=== PATIENT | female | born 1995 | race Caucasian/White ===

== ENCOUNTER 2017-02-19 11:25 | Observation (INO) | payer MEDICAID ==
[~2017-02-19] VITALS: Ht 162.6 cm; Wt 67.1 kg
[2017-02-22] MEDS ORDERED: PRENATAL VIT1 TAB PO (20:26)
--- NOTE | 2017-02-25 08:30 | HP ---
ADMIT: 02/19/2017 RM/LOC: 201 [facility] MR#: [id number] [id number] [address] JASMIN FERNANDEZ [facility] [address] [address] History and Physical SEX: F AGE: 21 : 1995 DATE OF SERVICE: CHIEF COMPLAINT: Contractions. HISTORY OF PRESENT ILLNESS: This is a very pleasant 21-year-old, 1, para 0 with an intrauterine at 34 weeks and 2/7 days by first trimester ultrasound, came in today with complaints of contractions. After monitoring over about 4 hours, she was noted to make some cervical change and felt to be in labor. She has been admitted for further workup and management of this. Her has otherwise been uncomplicated. She has come to all of her visits. No other major events during the care. She had a normal 20-week ultrasound, female infant. Normal cervical length at that time. No rupture of membranes. She denies any fevers, chills, or other associated symptoms. has been moving about on the monitor and has been reassuring. PAST MEDICAL HISTORY: Benign. MEDICATIONS: vitamin. LABS: O positive, antibody negative, rubella immune, serology nonreactive, GC and chlamydia negative, hepatitis B surface antigen negative. ALLERGIES: NO KNOWN DRUG ALLERGIES. FAMILY HISTORY: Noncontributory. SOCIAL HISTORY: No alcohol, drug, or tobacco use. REVIEW OF SYSTEMS: A 10-point review of systems obtained, per HPI otherwise negative. PHYSICAL EXAMINATION: VITAL SIGNS: Blood pressure 115/74, pulse 110, temperature 97.0, respirations 20. GENERAL: Alert and oriented x3. Mild discomfort with contractions. Otherwise, no acute distress. HEENT: Pupils equal, round and reactive. Extraocular muscles intact. Throat clear. Trachea midline. HEART: Regular rate and rhythm. No murmurs, rubs, or gallops. LUNGS: Clear to auscultation bilaterally. No wheezes or crackles. ABDOMEN: Soft. Gravid. Cervical check shows to be vertex, 5 cm dilated, 50% effaced, -3 station and has contractions every 2-4 minutes. heart tones category I. Membranes intact. ASSESSMENT: This is a 21-year-old, 1, para 0 with: 1. Intrauterine at 34 weeks 2/7 days by first trimester ultrasound. 2. Apparent labor. 3. Group B Streptococcus status unknown. ADMIT: 02/19/2017 RM/LOC: 201 [facility] MR#: [id number] [address] [place] [address] History and Physical SEX: F AGE: 21 : 1995 4. Uncomplicated course. 5. Normal 20-week ultrasound. PLAN: Given her gestational age, I did discuss briefly with Dr. Carbajal. We will go ahead and treat with betamethasone as well as GBS prophylaxis antibiotics. We will discuss patient's care and care with on-call physician, Dr. Alyx Akins for pediatrics. Anticipate delivery, expected management at this point. We will try to keep baby in utero as long as possible as long as strip continues to look reassuring. Discussed care with mother and family at length and they were all in agreement with current course of action and care. Phillip Bardales MD/ enio JOB #: [id number] CC: Phillip Bardales, Attending Physician Phillip Bardales, Family Physician
[2017-03-19] MEDS ORDERED: MOTRIN-DPS800 MG PO (07:07)
== END 2017-02-21 12:25 | disposition home or self-care (01) ==
LOC: 2LDRP 11:25 → BC 11:25 → 2LDRP 11:26 → BC 11:26 → 2LDRP 15:38
PROVIDERS: ADMIT Family Medicine
DX: O47.03 False labor before 37 completed weeks of gestation, third trimester (principal); O98.813 Other maternal infectious and parasitic diseases complicating pregnancy, third trimester; B95.1 Streptococcus, group B, as the cause of diseases classified elsewhere; Z3A.34 34 weeks gestation of pregnancy

== ENCOUNTER 2017-03-14 23:25 | Inpatient (IN) | payer MEDICAID ==
[~2017-03-14] VITALS: Ht 162.6 cm; Wt 67.1 kg
[~2017-03-14 23:25] MED LIST: PRENATAL VIT1 TAB PO
[2017-03-19] MEDS ORDERED: MOTRIN-DPS800 MG PO (07:07)
--- NOTE | 2017-03-24 08:10 | HP ---
ADMIT: 03/14/2017 RM/LOC: 219 [facility] MR#: [id number] [address] [place] [id number] JASMIN FERNANDEZ [address] [place] [address] [place] [address] History and Physical SEX: F AGE: 21 : 1995 DATE OF SERVICE: CHIEF COMPLAINT: Leakage of fluid and contractions. HISTORY OF PRESENT ILLNESS: Jasmin is a very pleasant 21-year-old, 1, para 0 with an intrauterine at 37 weeks and 5/7 days who has followed with myself for care. She presented after having spontaneous rupture of membranes last night and onset of contractions at approximately 2315 hours. Her has been complicated by GBS positive. She has also had contractions between 34 and 35 weeks to the extent that she was thought to be in actual labor and did receive 2 doses of steroids. Otherwise, has remained uncomplicated. The patient received epidural and her labor progressed expectedly overnight. PAST MEDICAL HISTORY: Benign. MEDICATIONS: vitamin. ALLERGIES: NO KNOWN DRUG ALLERGIES. SOCIAL HISTORY: No alcohol, drug, or tobacco use. Father of the baby is involved. She is originally from [place]. FAMILY HISTORY: Noncontributory. REVIEW OF SYSTEMS: A 10-point review of systems obtained, per HPI otherwise negative. PHYSICAL EXAMINATION: VITAL SIGNS: Blood pressure 120/79, pulse 96, respirations 16, and temperature 98.5. GENERAL: Alert and oriented x3. No acute distress. She appears comfortable. HEENT: Pupils equal, round, and reactive. Extraocular muscles intact. Throat clear. Trachea midline. HEART: Regular. LUNGS: Clear. ADMIT: 03/14/2017 RM/LOC: 219 [facility] MR#: [id number] [address] [place] [id number] JASMIN FERNANDEZ [address] [place] [address] [address] [place] [address] History and Physical SEX: F AGE: 21 : 1995 ABDOMEN: Gravid. Cervix, she is complete pushing. heart tones category I. Tocometer, contractions every 3-5 minutes. EXTREMITIES: Significant edema. ASSESSMENT: This is a 21-year-old, 1, para 0 with: 1. Intrauterine at 37 weeks 5/7 days. 2. Active labor. 3. Group B streptococcus positive. PLAN: The patient received 2 doses of IV antibiotics overnight. She has had an epidural. She is comfortable and pushing with imminent delivery. Routine cares, expected management. Phillip Bardales MD/ enio JOB #: [id number] CC: Phillip Bardales, Attending Physician Phillip Bardales, Family Physician
--- NOTE | 2017-03-24 08:14 | OR ---
ADMIT: 03/14/2017 RM/LOC: 219 [facility] MR#: [id number] [address] ANGELI FERNANDEZ [address] [address] Operative/Delivery Room Report SEX: F AGE: 21 : 1995 SURGERY DATE: 03/15/2017 SURGEON: Phillip Bardales MD PREOPERATIVE DIAGNOSES: 1. Intrauterine at 37 weeks and 5/7 days. 2. Active labor. 3. Group B streptococcus positive. POSTOPERATIVE DIAGNOSES: 1. Status post spontaneous vaginal delivery. 2. Status post repair of first-degree perineal laceration. 3. Intrauterine at 37 weeks and 5/7 days. 4. Active labor. 5. Group B streptococcus positive. PROCEDURES: 1. Spontaneous vaginal delivery. 2. First-degree perineal laceration repair. 3. Removal of Epidural Catheter FINDINGS: 1. Live-born female born at 0642 hours with a weight of 7 pounds 1.5 ounces (3210 g) and scores of 9 and 9 at 1 and 5 minutes respectively. 2. Intact placenta with 3-vessel cord. ANESTHESIA: Epidural. FLUIDS: Crystalloid. ESTIMATED BLOOD LOSS: 250 mL. COMPLICATIONS: None immediate. REASON FOR ADMISSION: Please refer to dictated H and P. Briefly, Angeli is a very pleasant, 21-year-old [place] female, 1, para 0 with a current intrauterine at 37 weeks and 4/7 days presented last night after spontaneous rupture of membranes shortly after 2300 hours. She had onset of contractions, presented herself to Labor and Delivery. Upon arrival, she was found to be in active labor, 6 cm dilated. Her has been complicated by GBS positive. She also had contractions which appeared to be labor between 34 and 35 weeks and received 2 doses of steroids. She did not progress and was eventually sent home. There have been no other major complications and she has had care from first trimester and regular visits. The patient received epidural overnight. She progressed as expected to the point where she was complete. She started pushing, bringing the 's vertex to the perineum. She had received 2 doses of antibiotics. Continuous routine maternal monitoring was done and was reassuring. ADMIT: 03/14/2017 RM/LOC: 219 [facility] MR#: [id number] [address] ANGELI FERNANDEZ [address] [place] [address] Operative/Delivery Room Report SEX: F AGE: 21 : 1995 DESCRIPTION OF PROCEDURE: The patient was in the dorsal lithotomy position, draped in the usual fashion. Infant's vertex noted to be on the perineum. She was asked to push, delivering the 's head in the OA position. After restitution of the head, no nuchal cords were noted. The left anterior shoulder followed by the posterior shoulder, remainder of the infant was done without difficulty. was noted to be vigorous and crying. Mouth and nares were bulb suctioned. The was held below maternal pelvis for approximately 30-45 seconds for delayed clamping. was then transferred to maternal abdomen, where nursing personnel were in attendance. Cord clamped x2 and cut by the father at the bedside. Cord blood obtained. Placenta delivered in less than 5 minutes. Twenty units Pitocin started in IV bag to help firm the uterus. Attention was then turned to the cervix and vaginal vault which was noted to be free of laceration. She had a small first-degree perineal laceration which was repaired with a single 3-0 Vicryl stitch, figure- of-eight. The uterus again was palpated and noted to be firm. Minimal bleeding. Sponge and needle counts were correct. There were no other major complications with the delivery. Epidural catheter removed intact at end of procedure without difficulty. Blue tip noted at end of catheter. Infant and mom were in stable condition recovering upon my departure. Phillip Bardales MD/ enio JOB #: [id number] CC: Phillip Bardales, Attending Physician Phillip Bardales, Family Physician
--- NOTE | 2017-04-29 07:59 | DS ---
ADMIT: 03/14/2017 RM/LOC: 219 [facility] MR#: [id number] [id number] [address] JASMIN FERNANDEZ [facility] [address] [address] General Discharge Summary SEX: F AGE: 21 : 1995 ADMISSION DATE: 03/14/2017 DISCHARGE DATE: 03/17/2017 DELIVERY DATE: 03/15/2017 FINAL DIAGNOSES: 1. Intrauterine at 37 weeks and 5/7 days. 2. Group B Streptococcus positive. 3. First-degree perineal laceration, status post repair. 4. Delivery of a live-born infant female, born at 0642 hours with a weight of 7 pounds 1.5 ounces (3210 g) and scores of 9 and 9 at 1 and 5 minutes respectively. Phillip Bardales MD/ modl JOB #: [id number] CC: Phillip Bardales MD, Attending Physician Phillip Bardales MD, Family Physician
== END 2017-03-17 13:00 | disposition home or self-care (01) | DRG 775 ==
LOC: BC 23:25 → 2LDRP 23:25 → BC 03-31 08:00
PROVIDERS: ADMIT Family Medicine
PROC: 0HQ9XZZ Repair Perineum Skin, External Approach (ICD-10-PCS; principal; 2017-03-15)
PROC: 10E0XZZ Delivery of Products of Conception, External Approach (ICD-10-PCS; principal; 2017-03-15)
DX: O99.824 Streptococcus B carrier state complicating childbirth (principal); Z37.0 Single live birth; O70.0 First degree perineal laceration during delivery; Z3A.37 37 weeks gestation of pregnancy